=== PATIENT | male | born 1940 | race Caucasian/White ===

== ENCOUNTER → 2017-10-07 | Outpatient (CLI) | payer OTHER ==
[~2017-10-07] MED LIST: CLONIDINE HCL0.2 MG PO; HYDROCODONE-AP1 EACH PO; IOPAMIDOL 370 MG/ML 200 ML INFUS..BTL INJ ONE; PENICILLIN; SODIUM CHLORIDE 0.9% 100 ML ONE; SULFAMETHOXAZO1 EAC1 PO; TYLENOL EXTRA500 MG PO; Z.0.AMLODIPINE BESYL PO; Z.0.LIPITOR10 MG PO; Z.0.OXYBUTYNIN CHLOR PO; Z.1.HYDROCHLOROTH12. PO
--- NOTE | 2017-10-07 10:27 | Diagnostic Imaging Report ---
PROCEDURE:CTA ABDOMEN WITH CONTRAST COMPARISON:None. INDICATIONS:Abdominal aortic aneurysm TECHNIQUE: Multi-detector CT technology with Dose Reduction was employed. Images were obtained after the administration of 100 cc of Isovue-370 intravenously. For optimization of anatomic evaluation, multiplanar and volume rendering reconstructions were performed. Advanced 3-D off-line postprocessing were performed on a dedicated stand-alone workstation under the direct supervision of the interpreting physician. DLP: 556.7 mGy-cm FINDINGS: Vessels: An aneurysm is present in the infrarenal abdominal aorta, beginning 2.6 cm distal to the origin of the left renal artery, measures approximately 8.1 cm in length (series 401 image 65), measures 5.0 cm in greatest transverse diameter (series 3 image 100), and extends up to the aortic bifurcation. No extension into the bilateral common iliac arteries is noted. No aneurysmal dilation is present in the bilateral common, internal, and external iliac arteries. Atherosclerotic calcifications are present in the abdominal aorta and great vessels. Lung bases: Bibasilar atelectasis. No parenchymal mass. No pleural effusion. Liver: No parenchymal mass. Normal parenchyma. Small hypodensity in the right lobe of the liver is too small to characterize, series 3 image 50. Biliary: No intrahepatic or extrahepatic biliary duct dilation. Normal gallbladder. Spleen: No focal mass. No splenomegaly. Pancreas: Partial fatty replacement of the pancreas. Adrenal Glands: No adrenal nodule. Kidneys: Three separate calculi are present in the inferior pole of the left kidney, the largest measuring 5.4 mm on series 3 image 90. No hydroureter or hydronephrosis. Minimal bilateral nonspecific perinephric soft tissue inflammatory changes. No solid enhancing mass. GI: Moderate sized paraesophageal hernia. No air-fluid levels or pneumoperitoneum. No bowel wall thickening. Normal appendix. The bowel in the pelvis is not included in the examination. Peritoneum/Retroperitoneum: No drainable fluid collection. No pneumoperitoneum. No lymphadenopathy. Small umbilical hernia is present Musculoskeletal: Degenerative changes of the lumbar spine. CONCLUSION: Infrarenal abdominal aortic aneurysm as above. Nonobstructing left nephrolithiasis. Paraesophageal hernia. Dictated by: Ruslan Blanco M.D. on 10/07/2017 at 10:28 Electronically approved by: Ruslan Blanco M.D. on 10/07/2017 at 10:28
== END ==
LOC: CT 08:19
PROVIDERS: ATTEND Internal Medicine Cardiovascular Disease
DX: I71.4 Abdominal aortic aneurysm, without rupture (principal)
CPT/HCPCS: 74175; J7050; Q9967

== ENCOUNTER → 2019-01-06 | Outpatient (CLI) | payer MEDICARE ==
[~2019-01-06] MED LIST changes: +SODIUM CHLORIDE 0.9% 100 ML 100 ML ONE; -SODIUM CHLORIDE 0.9% 100 ML ONE
[2019-01-06 09:32] LABS: BLOOD UREA NITROGEN 14 mg/dL (7-26); BUN/CREATININE RATIO 15 (6-25); CREATININE, SERUM 0.96 mg/dL (0.72-1.25); EST GLOMERULAR FILTRATION RATE > 60 ML/MIN (60-)
--- NOTE | 2019-01-06 10:53 | Diagnostic Imaging Report ---
ABDOMINOPELVIC CT WITH ANEURYSM PROTOCOL WITH AND WITHOUT IV CONTRAST. 3D post-processing of the images was performed, and the post-processed images were used in interpretation. COMPARISON: Abdominal CTA of 10/07/2017. INDICATION: Abdominal aortic aneurysm RADIATION DOSE: Total DLP: 778.6 mGy*cm Dose modulation, iterative reconstruction, and/or weight based adjustment of the mA/kV was utilized to reduce the radiation dose to as low as reasonably achievable. FINDINGS: VESSELS: Again seen is an infrarenal abdominal aortic aneurysm with a maximum diameter of 5.2x5.2 cm, increased from 10/07/2017 at which point it measured up to 4.8 cm (today's measurement). The aneurysm extends to approximately 1.5 cm above the bifurcation. Again seen is a focal short segment dissection at the right lateral aspect of the superior margin of the aneurysm. There are moderate calcified and noncalcified atherosclerotic plaques in the aorta. 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 The right common iliac artery measures up to 1.9 cm. The left common iliac artery measures up to 1.5 cm. The right external iliac artery measures up to 1.2 cm. The left external iliac artery measures up to 1.2 cm. The common femoral arteries measure up to 1.2 cm on both sides. The celiac artery, superior mesenteric artery, and inferior mesenteric artery are patent. There is a single right renal artery and a single left renal artery, which are patent. LUNG BASES: Bibasilar dependent subsegmental atelectasis. Large hiatal hernia with more than half of the stomach above the diaphragm. Multichamber cardiomegaly. Atherosclerotic calcifications of the coronary arteries and thoracic aorta. ABDOMEN: No focal liver lesions. The gallbladder appears unremarkable. The spleen, pancreas, and adrenals appear unremarkable. Nonobstructing left lower pole renal calculi measure up to 7 mm. No hydronephrosis. No lymphadenopathy. Coarse calcifications in the prostate. Mild colonic diverticulosis. No CT evidence of diverticulitis. No abnormal bowel wall thickening or bowel obstruction. Normal appendix. Small periumbilical hernia containing fat. BONES: No acute osseous injury. No suspicious lytic or blastic lesions. Degenerative changes of the visualized spine. IMPRESSION: Interval increase in size of infrarenal abdominal aortic aneurysm, now measuring 5.2 cm compared to 4.8 cm previously (today's measurement). Unchanged appearance of focal dissection along the superior right lateral aspect of the aneurysm. Ectatic bilateral common iliac arteries, essentially unchanged. Signed by: Milo Philippe MD on 01/06/2019 10:50 AM
== END ==
LOC: CT 08:41
PROVIDERS: ATTEND Thoracic Surgery (Cardiothoracic Vascular Surgery)
DX: I71.4 Abdominal aortic aneurysm, without rupture (principal)
CPT/HCPCS: 36415; 74174; 82565; 84520; Q9967

== ENCOUNTER 2021-10-24 12:40 | Inpatient (IN) | payer MEDICARE, OTHER ==
[~2021-10-24] VITALS: Ht 175.3 cm; Wt 95.3 kg
[~2021-10-24 12:40] MED LIST changes: -IOPAMIDOL 370 MG/ML 200 ML INFUS..BTL INJ ONE; -SODIUM CHLORIDE 0.9% 100 ML 100 ML ONE
[2021-10-24] MEDS ORDERED: TETANUS/DIPHTHERIA TOX ADULT 0.5 ML SYR IM ONE (13:00)
[2021-10-24] MEDS: HYDROCODONE/APAP 5MG-325MG TAB PO PRN (16:25)
[2021-10-24] MEDS: ONDANSETRON HCL INJ 2MG/ML 2ML 2 MG/ML VIAL IV PRN (16:26)
[2021-10-24] MEDS ORDERED: FENTANYL CITRATE/PF 100MCG/2 ML INJ IV ONE (19:45)
[2021-10-24 20:58] VITALS: BP 132/73
[2021-10-24 21:10] VITALS: BP 132/73
[2021-10-24 22:02] LABS: BASOPHILS % 0.4 % (0.0-1.0); EOSINOPHILS # (AUTO) 0.2 (0.0-0.4); EOSINOPHILS % 2.2 % (0.0-6.0); HEMATOCRIT 42.7 % (38.2-49.6); HEMOGLOBIN 12.9 g/dL (14.0-18.0); LYMPHOCYTES # (AUTO) 1.3 (1.0-3.2); LYMPHOCYTES % 11.8 % (18.0-39.1); MEAN CORPUSCULAR HEMOGLOBIN 29.2 pg (28-32); MEAN CORPUSCULAR HGB CONC 30.2 g/dL (31-35); MEAN CORPUSCULAR VOLUME 96.6 fL (81-99); MONOCYTES # (AUTO) 0.7 (0.2-0.8); MONOCYTES % 5.8 % (4.4-11.3); NEUTROPHILS # (AUTO) 8.8 (2.1-6.9); NEUTROPHILS % 79.4 % (38.7-80.0); PLATELET COUNT 203 x10e3/uL (140-360); RED BLOOD COUNT 4.42 x10e6/uL (4.3-5.7); RED CELL DISTRIBUTION WIDTH 14.6 % (11.7-14.4)
[2021-10-24 22:10] LABS: ANION GAP 12.9 mmol/L (8-16); CALCIUM 8.5 mg/dL (8.4-10.2); CREATININE, SERUM 1.31 mg/dL (0.72-1.25); POTASSIUM 3.9 mmol/L (3.5-5.1)
[2021-10-24 22:13] LABS: INR 0.93; PROTHROMBIN TIME 13.3 seconds (11.9-14.5)
[2021-10-24 22:14] LABS: PARTIAL THROMBOPLASTIN TIME 35.9 seconds (23.8-35.5)
[2021-10-24] MEDS ORDERED: MAGNESIUM HYDROXIDE 30 ML UDC PO PRN (22:15)
[2021-10-24] MEDS ORDERED: KETOROLAC TROMETHAMINE 30 MG/ML VIAL IV PRN ×2 (22:15→22:30)
[2021-10-24] MEDS ORDERED: HYDRALAZINE HCL 25 MG TAB PO PRN (22:15)
[2021-10-24 22:46] LABS: HEMATOCRIT 40.3 % (38.2-49.6); HEMOGLOBIN 12.4 g/dL (14.0-18.0)
[2021-10-24] MEDS ORDERED: PROBIOTIC250 MG (23:01)
[2021-10-24] MEDS ORDERED: MULTI-VITAMIN1 EACH PO (23:01)
[2021-10-24] MEDS ORDERED: ZETIA10 MG PO (23:01)
[2021-10-24] MEDS ORDERED: PROBIOTIC & AC1 EACH PO (23:01)
[2021-10-24] MEDS ORDERED: PROSCAR5 MG PO (23:01)
[2021-10-24] MEDS ORDERED: CARVEDILOL12.5 MG PO (23:01)
[2021-10-24] MEDS ORDERED: NEXIUM40 MG PO (23:01)
[2021-10-24] MEDS ORDERED: FLOMAX0.4 MG PO (23:01)
[2021-10-24] MEDS ORDERED: BENEFIBER1 EAC1 PO (23:01)
[2021-10-24] MEDS ORDERED: PROBIOTIC PO (23:01)
[2021-10-24] MEDS ORDERED: FLONASE ALLERG9.9 ML INH (23:01)
[2021-10-24] MEDS ORDERED: FRUIT & VEGETA1 EACH (23:01)
[2021-10-24] MEDS ORDERED: FOLIC ACID0.4 MG PO (23:01)
[2021-10-24] MEDS ORDERED: AMIODARONE HCL200 MG PO (23:01)
[2021-10-24 23:03] VITALS: BP 132/73
[2021-10-25] VITALS (8 sets, daily range): BP systolic 148–170; BP diastolic 77–99
[2021-10-25] MEDS ORDERED: MELATONIN3 MG PO (03:58)
[2021-10-25 06:34] LABS: BASOPHILS # (AUTO) 0.1 (0.0-0.1); BASOPHILS % 0.7 % (0.0-1.0); EOSINOPHILS # (AUTO) 0.3 (0.0-0.4); EOSINOPHILS % 3.9 % (0.0-6.0); HEMATOCRIT 41.3 % (38.2-49.6); HEMOGLOBIN 12.8 g/dL (14.0-18.0); LYMPHOCYTES # (AUTO) 1.2 (1.0-3.2); LYMPHOCYTES % 15.6 % (18.0-39.1); MEAN CORPUSCULAR HEMOGLOBIN 29.2 pg (28-32); MEAN CORPUSCULAR VOLUME 94.3 fL (81-99); MONOCYTES # (AUTO) 0.6 (0.2-0.8); MONOCYTES % 7.4 % (4.4-11.3); NEUTROPHILS # (AUTO) 5.5 (2.1-6.9); NEUTROPHILS % 72.1 % (38.7-80.0); PLATELET COUNT 193 x10e3/uL (140-360); RED BLOOD COUNT 4.38 x10e6/uL (4.3-5.7); RED CELL DISTRIBUTION WIDTH 14.4 % (11.7-14.4)
[2021-10-25 07:03] LABS: CALCIUM 8.6 mg/dL (8.4-10.2); CREATININE, SERUM 1.06 mg/dL (0.72-1.25)
[2021-10-25] MEDS: HYDROCODONE/APAP 5MG-325MG TAB PO PRN ×3 (07:26→20:27)
[2021-10-25] MEDS ORDERED: FAMOTIDINE 20 MG TAB PO SCH (07:30)
[2021-10-25] MEDS ORDERED: CLONIDINE HCL 0.2 MG TAB PO SCH (09:00)
[2021-10-25] MEDS: CELECOXIB 100 MG CAP PO SCH ×2 (10:20→16:48)
[2021-10-25] MEDS: SENNA-S TABLET PO SCH ×2 (10:21→16:48)
[2021-10-25] MEDS: FOLIC ACID 1 MG TAB PO SCH (10:21)
[2021-10-25] MEDS: AMLODIPINE BESYLATE 5 MG TAB PO SCH (10:21)
[2021-10-25] MEDS: CARVEDILOL 12.5 MG TAB PO SCH ×2 (10:21→16:48)
[2021-10-25] MEDS: AMIODARONE HCL 200 MG TAB PO SCH (10:21)
[2021-10-25] MEDS: PANTOPRAZOLE SOD 40 MG TABEC PO SCH (10:21)
[2021-10-25] MEDS: MULTIVITAMINS/MINERALS TAB PO SCH (10:21)
[2021-10-25] MEDS: EZETIMIBE 10 MG TAB PO SCH (10:21)
[2021-10-25] MEDS: FINASTERIDE 5 MG TAB PO SCH (10:21)
[2021-10-25] MEDS: FLUTICASONE PROPIONATE NASAL SPRAY NS SCH ×2 (11:25→16:48)
[2021-10-25] MEDS: ONDANSETRON HCL INJ 2MG/ML 2ML 2 MG/ML VIAL IV PRN (16:46)
[2021-10-25] MEDS: TAMSULOSIN HCL 0.4 MG CAP PO SCH (16:48)
[2021-10-25] MEDS: ATORVASTATIN 10 MG TAB PO SCH (20:20)
[2021-10-26] VITALS (8 sets, daily range): BP systolic 133–160; BP diastolic 76–97
[2021-10-26] MEDS: HYDROCODONE/APAP 5MG-325MG TAB PO PRN ×2 (04:11→20:25)
[2021-10-26] MEDS: FLUTICASONE PROPIONATE NASAL SPRAY NS SCH ×2 (09:21→17:45)
[2021-10-26] MEDS: PANTOPRAZOLE SOD 40 MG TABEC PO SCH (09:21)
[2021-10-26] MEDS: CELECOXIB 100 MG CAP PO SCH ×2 (09:21→17:45)
[2021-10-26] MEDS: AMIODARONE HCL 200 MG TAB PO SCH (09:21)
[2021-10-26] MEDS: MULTIVITAMINS/MINERALS TAB PO SCH (09:22)
[2021-10-26] MEDS: FOLIC ACID 1 MG TAB PO SCH (09:22)
[2021-10-26] MEDS: AMLODIPINE BESYLATE 5 MG TAB PO SCH (09:22)
[2021-10-26] MEDS: BACITRACIN ZINC 15 GM OINT TOP SCH (09:22)
[2021-10-26] MEDS: SENNA-S TABLET PO SCH ×2 (09:22→17:46)
[2021-10-26] MEDS: CARVEDILOL 12.5 MG TAB PO SCH ×2 (09:22→17:46)
[2021-10-26] MEDS: EZETIMIBE 10 MG TAB PO SCH (09:22)
[2021-10-26] MEDS: FINASTERIDE 5 MG TAB PO SCH (09:22)
[2021-10-26] MEDS: TAMSULOSIN HCL 0.4 MG CAP PO SCH (17:46)
[2021-10-26] MEDS: APIXAB 2.5 MG TABLET PO SCH (17:46)
[2021-10-26] MEDS: ATORVASTATIN 10 MG TAB PO SCH (20:25)
[2021-10-26] MEDS: MELATONIN 5 MG TABLET PO PRN (21:45)
[2021-10-27] VITALS (8 sets, daily range): BP systolic 94–159; BP diastolic 69–90
[2021-10-27] MEDS: HYDROCODONE/APAP 5MG-325MG TAB PO PRN ×2 (04:29→20:50)
[2021-10-27 05:27] LABS: HEMOGLOBIN 12.9 g/dL (14.0-18.0); RED BLOOD COUNT 4.34 x10e6/uL (4.3-5.7)
[2021-10-27 05:28] LABS: BASOPHILS % 0.5 % (0.0-1.0); EOSINOPHILS # (AUTO) 0.4 (0.0-0.4); EOSINOPHILS % 5.7 % (0.0-6.0); HEMATOCRIT 41.7 % (38.2-49.6); LYMPHOCYTES # (AUTO) 1.3 (1.0-3.2); LYMPHOCYTES % 16.5 % (18.0-39.1); MEAN CORPUSCULAR HEMOGLOBIN 29.7 pg (28-32); MEAN CORPUSCULAR HGB CONC 30.9 g/dL (31-35); MEAN CORPUSCULAR VOLUME 96.1 fL (81-99); MONOCYTES # (AUTO) 0.7 (0.2-0.8); MONOCYTES % 8.8 % (4.4-11.3); NEUTROPHILS # (AUTO) 5.3 (2.1-6.9); NEUTROPHILS % 68.2 % (38.7-80.0); PLATELET COUNT 188 x10e3/uL (140-360); RED CELL DISTRIBUTION WIDTH 14.3 % (11.7-14.4)
[2021-10-27 05:55] LABS: ANION GAP 12.1 mmol/L (8-16); CALCIUM 8.7 mg/dL (8.4-10.2); CREATININE, SERUM 1.12 mg/dL (0.72-1.25); POTASSIUM 4.1 mmol/L (3.5-5.1)
[2021-10-27] MEDS: FLUTICASONE PROPIONATE NASAL SPRAY NS SCH ×2 (08:07→17:19)
[2021-10-27] MEDS: APIXAB 2.5 MG TABLET PO SCH ×2 (08:07→17:19)
[2021-10-27] MEDS: CARVEDILOL 12.5 MG TAB PO SCH ×2 (08:07→17:19)
[2021-10-27] MEDS: AMIODARONE HCL 200 MG TAB PO SCH (08:07)
[2021-10-27] MEDS: PANTOPRAZOLE SOD 40 MG TABEC PO SCH (08:07)
[2021-10-27] MEDS: MULTIVITAMINS/MINERALS TAB PO SCH (08:07)
[2021-10-27] MEDS: FOLIC ACID 1 MG TAB PO SCH (08:07)
[2021-10-27] MEDS: CELECOXIB 100 MG CAP PO SCH ×2 (08:07→17:19)
[2021-10-27] MEDS: EZETIMIBE 10 MG TAB PO SCH (08:08)
[2021-10-27] MEDS: AMLODIPINE BESYLATE 5 MG TAB PO SCH (08:08)
[2021-10-27] MEDS: FINASTERIDE 5 MG TAB PO SCH (08:08)
[2021-10-27] MEDS: BACITRACIN ZINC 15 GM OINT TOP SCH (08:08)
[2021-10-27] MEDS: SENNA-S TABLET PO SCH ×2 (08:08→17:19)
[2021-10-27] MEDS: TAMSULOSIN HCL 0.4 MG CAP PO SCH (17:19)
[2021-10-27] MEDS: ATORVASTATIN 10 MG TAB PO SCH (20:30)
[2021-10-27] MEDS: MELATONIN 5 MG TABLET PO PRN (23:48)
[2021-10-28] VITALS (9 sets, daily range): BP systolic 115–177; BP diastolic 60–101
[2021-10-28] MEDS: PANTOPRAZOLE SOD 40 MG TABEC PO SCH (07:30)
[2021-10-28] MEDS: CELECOXIB 100 MG CAP PO SCH ×2 (08:00→16:45)
[2021-10-28] MEDS ORDERED: HYDRALAZINE HCL 25 MG TAB PO PRN (09:00)
[2021-10-28] MEDS: EZETIMIBE 10 MG TAB PO SCH (09:00)
[2021-10-28] MEDS: SENNA-S TABLET PO SCH ×2 (09:00→16:46)
[2021-10-28] MEDS: AMLODIPINE BESYLATE 5 MG TAB PO SCH (09:00)
[2021-10-28] MEDS ORDERED: KETOROLAC TROMETHAMINE 30 MG/ML VIAL IV PRN (09:00)
[2021-10-28] MEDS: BACITRACIN ZINC 15 GM OINT TOP SCH (09:00)
[2021-10-28] MEDS: CARVEDILOL 12.5 MG TAB PO SCH ×2 (09:00→16:45)
[2021-10-28] MEDS: FOLIC ACID 1 MG TAB PO SCH (09:00)
[2021-10-28] MEDS: APIXAB 2.5 MG TABLET PO SCH ×2 (09:00→16:45)
[2021-10-28] MEDS: FINASTERIDE 5 MG TAB PO SCH (09:00)
[2021-10-28] MEDS: MULTIVITAMINS/MINERALS TAB PO SCH (09:00)
[2021-10-28] MEDS: AMIODARONE HCL 200 MG TAB PO SCH (09:00)
[2021-10-28] MEDS: FLUTICASONE PROPIONATE NASAL SPRAY NS SCH ×2 (09:00→16:45)
[2021-10-28] MEDS: HYDROCODONE/APAP 5MG-325MG TAB PO PRN ×3 (09:45→15:45)
[2021-10-28] MEDS ORDERED: BISACODYL 10 MG SUPP PR ONE (09:45)
[2021-10-28] MEDS ORDERED: MAGNESIUM HYDROXIDE 30 ML UDC PO ONE (09:45)
[2021-10-28] MEDS ORDERED: MAGNESIUM HYDROXIDE 30 ML UDC PO PRN (09:45)
[2021-10-28] MEDS ORDERED: BISACODYL 5 MG TAB EC PO ONE ×2 (09:45→10:30)
[2021-10-28] MEDS ORDERED: BISACODYL 10 MG SUPP PR PRN (09:45)
[2021-10-28] MEDS: ONDANSETRON HCL INJ 2MG/ML 2ML 2 MG/ML VIAL IV PRN (11:15)
[2021-10-28] MEDS: TAMSULOSIN HCL 0.4 MG CAP PO SCH (16:45)
[2021-10-28] MEDS: ATORVASTATIN 10 MG TAB PO SCH (21:33)
[2021-10-28] MEDS: MELATONIN 5 MG TABLET PO PRN (23:27)
[2021-10-29] VITALS (7 sets, daily range): BP systolic 111–162; BP diastolic 75–88
[2021-10-29 05:36] LABS: BASOPHILS # (AUTO) 0.1 (0.0-0.1); BASOPHILS % 0.7 % (0.0-1.0); EOSINOPHILS # (AUTO) 0.4 (0.0-0.4); EOSINOPHILS % 5.6 % (0.0-6.0); HEMATOCRIT 39.7 % (38.2-49.6); HEMOGLOBIN 12.4 g/dL (14.0-18.0); LYMPHOCYTES # (AUTO) 1.5 (1.0-3.2); LYMPHOCYTES % 21.3 % (18.0-39.1); MEAN CORPUSCULAR HEMOGLOBIN 29.2 pg (28-32); MEAN CORPUSCULAR HGB CONC 31.2 g/dL (31-35); MEAN CORPUSCULAR VOLUME 93.4 fL (81-99); MONOCYTES # (AUTO) 0.7 (0.2-0.8); MONOCYTES % 9.4 % (4.4-11.3); NEUTROPHILS # (AUTO) 4.5 (2.1-6.9); NEUTROPHILS % 62.7 % (38.7-80.0); PLATELET COUNT 204 x10e3/uL (140-360); RED BLOOD COUNT 4.25 x10e6/uL (4.3-5.7); RED CELL DISTRIBUTION WIDTH 14.5 % (11.7-14.4)
[2021-10-29 05:56] LABS: CALCIUM 8.3 mg/dL (8.4-10.2)
[2021-10-29 06:00] LABS: CREATININE, SERUM 1.14 mg/dL (0.72-1.25)
[2021-10-29] MEDS: AMIODARONE HCL 200 MG TAB PO SCH (08:44)
[2021-10-29] MEDS: FLUTICASONE PROPIONATE NASAL SPRAY NS SCH ×2 (08:44→17:42)
[2021-10-29] MEDS: CELECOXIB 100 MG CAP PO SCH ×2 (08:44→17:42)
[2021-10-29] MEDS: FINASTERIDE 5 MG TAB PO SCH (08:46)
[2021-10-29] MEDS: APIXAB 2.5 MG TABLET PO SCH ×2 (08:46→17:43)
[2021-10-29] MEDS: CARVEDILOL 12.5 MG TAB PO SCH ×2 (08:46→17:43)
[2021-10-29] MEDS: EZETIMIBE 10 MG TAB PO SCH (08:46)
[2021-10-29] MEDS: FOLIC ACID 1 MG TAB PO SCH (08:46)
[2021-10-29] MEDS: SENNA-S TABLET PO SCH ×2 (08:46→17:42)
[2021-10-29] MEDS: AMLODIPINE BESYLATE 5 MG TAB PO SCH (08:46)
[2021-10-29] MEDS: MULTIVITAMINS/MINERALS TAB PO SCH (08:46)
[2021-10-29] MEDS: PANTOPRAZOLE SOD 40 MG TABEC PO SCH (08:47)
[2021-10-29] MEDS: BACITRACIN ZINC 15 GM OINT TOP SCH (08:47)
[2021-10-29] MEDS: HYDROCODONE/APAP 5MG-325MG TAB PO PRN (14:07)
[2021-10-29] MEDS: TAMSULOSIN HCL 0.4 MG CAP PO SCH (17:42)
[2021-10-29] MEDS: ATORVASTATIN 10 MG TAB PO SCH (20:24)
[2021-10-30] VITALS: BP 127/54
[2021-10-30 04:00] VITALS: BP 142/69
[2021-10-30 07:48] VITALS: BP 134/64
[2021-10-30 07:56] VITALS: BP 136/64
[2021-10-30] MEDS: AMIODARONE HCL 200 MG TAB PO SCH (08:56)
[2021-10-30] MEDS: CELECOXIB 100 MG CAP PO SCH (08:56)
[2021-10-30] MEDS: PANTOPRAZOLE SOD 40 MG TABEC PO SCH (08:56)
[2021-10-30] MEDS: SENNA-S TABLET PO SCH (08:57)
[2021-10-30] MEDS: FOLIC ACID 1 MG TAB PO SCH (08:57)
[2021-10-30] MEDS: MULTIVITAMINS/MINERALS TAB PO SCH (08:57)
[2021-10-30] MEDS: EZETIMIBE 10 MG TAB PO SCH (08:57)
[2021-10-30] MEDS: AMLODIPINE BESYLATE 5 MG TAB PO SCH (08:57)
[2021-10-30] MEDS: FINASTERIDE 5 MG TAB PO SCH (08:57)
[2021-10-30] MEDS: APIXAB 2.5 MG TABLET PO SCH (08:57)
[2021-10-30] MEDS: CARVEDILOL 12.5 MG TAB PO SCH (08:57)
[2021-10-30] MEDS: FLUTICASONE PROPIONATE NASAL SPRAY NS SCH (08:59)
[2021-10-30] MEDS: HYDROCODONE/APAP 5MG-325MG TAB PO PRN (09:09)
[2021-10-30] MEDS: BACITRACIN ZINC 15 GM OINT TOP SCH (09:10)
== END 2021-10-30 10:58 | disposition home or self-care (01) | DRG 536 ==
LOC: ER 12:51 → ERHOLD 15:29 → MED/SURG2 20:39
PROVIDERS: ADMIT Internal Medicine; ATTEND Internal Medicine
DX: S32.512A Fracture of superior rim of left pubis, initial encounter for closed fracture (principal); S32.511A Fracture of superior rim of right pubis, initial encounter for closed fracture; S63.501A Unspecified sprain of right wrist, initial encounter; S80.212A Abrasion, left knee, initial encounter; S80.211A Abrasion, right knee, initial encounter; Y93.01 Activity, walking, marching and hiking; Y92.410 Unspecified street and highway as the place of occurrence of the external cause; E78.00 Pure hypercholesterolemia, unspecified; Z87.442 Personal history of urinary calculi; M16.0 Bilateral primary osteoarthritis of hip; I10 Essential (primary) hypertension; N40.0 Benign prostatic hyperplasia without lower urinary tract symptoms; I49.9 Cardiac arrhythmia, unspecified; I16.0 Hypertensive urgency; W10.1XXA Fall (on)(from) sidewalk curb, initial encounter; E66.9 Obesity, unspecified; Z68.31 Body mass index [BMI] 31.0-31.9, adult; Z20.822 Contact with and (suspected) exposure to COVID-19
CPT/HCPCS: 36415; 72192; 72195; 73523; 80048; 85014; 85018; 85025; 85610; 85730; 90471; 90714; 97139; 99251; 99284; J1885; J2405; J3010; U0002